=== PATIENT | female | born 1995 | race Caucasian/White ===

== ENCOUNTER 2024-10-18 17:51 | Emergency (ER) | payer OTHER ==
[~2024-10-18] VITALS: Ht 157.5 cm; Wt 104.5 kg
[~2024-10-18 17:51] MED LIST: NOCURR
[2024-10-18 18:01] VITALS: TEMP 98.2
[2024-10-18 20:13] VITALS: BP 149/89; PULSE 84; RESP 18; O2SAT 100
== END 2024-10-18 20:14 | disposition home or self-care (01) ==
LOC: EMS 17:51
DX: S93.402A Sprain of unspecified ligament of left ankle, initial encounter (principal); X50.1XXA Overexertion from prolonged static or awkward postures, initial encounter; Y93.89 Activity, other specified; Y92.89 Other specified places as the place of occurrence of the external cause; Y99.8 Other external cause status
CPT/HCPCS: 99283